=== PATIENT | male | born 1975 | race Caucasian/White ===

== ENCOUNTER 2016-12-04 10:32 | Emergency (ER) | payer OTHER ==
[~2016-12-04 10:32] MED LIST: ASPIRIN81 M2 PO; CLOPIDOGREL75 MG PO; LIPITOR PO; LISINOPRIL; NEURONTIN; OMEPRAZOLE40 M1 PO; PERCOCET; XANAX0.5 M1
== END 2016-12-04 11:42 | disposition home or self-care (01) ==
LOC: SED 10:32
DX: S00.412A Abrasion of left ear, initial encounter (principal); I25.2 Old myocardial infarction; Z88.5 Allergy status to narcotic agent; Z79.899 Other long term (current) drug therapy; Z79.02 Long term (current) use of antithrombotics/antiplatelets; X58.XXXA Exposure to other specified factors, initial encounter; Y92.9 Unspecified place or not applicable
CPT/HCPCS: 99282